=== PATIENT | female | born 1950 | race Caucasian/White ===

== ENCOUNTER → 2017-09-08 | Day surgery (SDC) | payer MEDICARE ==
[~2017-09-08] MED LIST: ACETAMINOPHEN 1000 MG/100 ML 100 ML IV ONE; BUPIVACAINE/EPINEPHRINE 0.25% PF 30 ML VIAL ONE; LACTATED RINGER'S 1000 ML INJ 0 ML ONE; LIDOCAINE 1.5%/EPINEPHrine 1:200,000 PF SOLN 30 ML AMP ONE; MIDAZOLAM HCL 2 MG/2 ML VIAL ONE; ONDANSETRON HCL 4 MG/2 ML VIAL IV PUSH ONE; PROPOFOL 100 MG/10 ML INJ IV ONE; SODIUM CHLOR 0.9% 250 ML BAG IV ONE; VANCOMYCIN HCL 1000 MG VIAL ONE
--- NOTE | 2017-09-08 15:54 | MP ---
cc: TONI EUBANKS M.D., LOU[place] M. MD DATE OF SURGERY: 09/08/2017 PROCEDURE Excision 5 x 6 cm soft tissue mass, left upper back. PREOPERATIVE DIAGNOSIS Soft tissue mass left upper back slowly enlarging. POSTOPERATIVE DIAGNOSIS Soft tissue mass left upper back slowly enlarging. ANESTHESIA LMA. SURGEON [place]aurus. ESTIMATED BLOOD LOSS 5 mL. FLUIDS 100 mL crystalloid. COMPLICATIONS None. DRAINS None. SPECIMEN Left upper back soft tissue mass to pathology. PROCEDURE IN DETAIL The patient was seen in the holding area and the left upper back marked by the undersigned and confirmed by the patient. She was taken to the operating room and placed on the operating table in the supine position. After laryngeal mask anesthesia was instituted the patient was placed in the right lateral decubitus position. The left upper back was prepped and draped. A timeout was taken confirming the correct patient, site and procedure to be performed. Skin and subcutaneous tissue was infiltrated with local anesthetic and an oblique incision was made directly over the mass. Dissection was carried down to the mass which was excised from the muscle and subcutaneous tissue. This was completely and easily excised. When this was accomplished all bleeding was meticulously controlled with electrocautery. There was very minimal bleeding to begin with. The wound was then re-approximated with interrupted 2-0 Vicryl suture and the skin closed with 5-0 PDS in a running subcuticular fashion. The wound was dressed with Steri-Strips and 4x4s and a pressure bandage was applied. The patient was extubated and taken back to the recovery room in stable condition. She tolerated the procedure well. MD JU Cordova/CAROL /2:59 PM /3:46 PM
== END | disposition home or self-care (01) ==
LOC: ESDC 11:58
PROVIDERS: ATTEND Surgery Trauma Surgery
DX: D17.1 Benign lipomatous neoplasm of skin and subcutaneous tissue of trunk (principal)
CPT/HCPCS: 00300; 21931; 88304; J0131; J2250; J2405; J3010; J3370; J7050; 88305; J7120